=== PATIENT | female | born 1995 | race African-American/Black ===

== ENCOUNTER 2016-11-14 15:13 | Emergency (ER) | payer OTHER ==
[~2016-11-14] VITALS: Ht 162.6 cm; Wt 53.7 kg
[2016-11-14 15:16] VITALS: Ht 162.6 cm; Wt 53.7 kg
[2016-11-14] MEDS ORDERED: SODIUM CHLORIDE 0.9% 1000ML 1,000 ML IV STA (15:31)
[2016-11-14 15:49] LABS: URINE APPEARANCE CLEAR (CLEAR); URINE BILIRUBIN NEG (NEG); URINE COLOR YELLOW; URINE EPITHELIAL CELL AUTO >30 /lpf (0-5); URINE NITRITE NEG (NEG); URINE PH 7.5 (4.5-7.5); URINE SPECIFIC GRAVITY 1.016 (1.000-1.030); UROBILINOGEN NEG (NEG); ZZUR CULT IF INDIC CLEAN CATCH YES
[2016-11-14 15:51] LABS: MANUAL MICROSCOPIC REQUIRED? NO; REVIEW REQ? NO
[2016-11-14 16:08] LABS: BASO % 0.2 %; BASO ABS # 0.01 K/uL (0-0.2); COMPLETE YES; EOS % 1.3 %; HEMATOCRIT 37.6 % (37-47); IG% 0.4 %; LYMPH % 33.1 %; LYMPH ABS # 1.52 K/uL (1.2-3.4); MEAN CELL VOLUME 90.4 fL (80-100); MEAN CORPUSCULAR HEMOGLOBIN 28.8 pg (25-34); MEAN CORPUSCULAR HGB CONC 31.9 g/dl (32-36); MEAN PLATELET VOLUME 12.8 fL (7.4-10.4); PLATELET COUNT 170 K/uL (130-400); RED BLOOD COUNT 4.16 M/uL (4.2-5.4); WHITE BLOOD COUNT 4.59 K/uL (4.8-10.8)
[2016-11-14 16:30] LABS: ALT/SGPT 22 U/L (12-78); BLOOD UREA NITROGEN 9 mg/dl (7-18); BUN/CREATININE RATIO 11.8 (10-20); C-REACTIVE PROTEIN < 0.29 mg/dl (0-0.29); CALCIUM 9.7 mg/dl (8.5-10.1); CARBON DIOXIDE 30 mmol/L (21-32); CHLORIDE 106 mmol/L (98-107); GLUCOSE 76 mg/dl (70-99); POTASSIUM 3.5 mmol/L (3.5-5.1); SODIUM 140 mmol/L (136-145)
--- NOTE | 2016-11-14 16:32 | DIAGNOSTIC IMAGING REPORT ---
ABDOMEN 2VIEW W/PA CHEST RTN CLINICAL HISTORY: Right-sided abdominal pain of 2 weeks' duration. COMPARISON STUDY: No previous studies for comparison. FINDINGS: The erect chest reveals no evidence of free air. There is no evidence of focal pulmonary consolidation.] Erect and supine views of the abdomen reveal no abnormally dilated loops of large or small bowel. There are no transition zone to indicate bowel obstruction. There is a thoracolumbar dextroscoliosis. There is mild fecal retention. There are nonspecific left pelvic basin calcifications, statistically representing phleboliths. IMPRESSION: 1. No evidence of bowel obstruction. No evidence of free air 2. Scoliosis 3. Mild fecal retention Electronically signed by: Darryl Kingsley M.D. 11/14/2016 4:30 PM Dictated Date/Time: 11/14/2016 4:29 PM
[2016-11-14 16:33] LABS: ALKALINE PHOSPHATASE 71 U/L (45-117); AST/SGOT 16 U/L (15-37)
[2016-11-14] MEDS ORDERED: MULT-513 PO (16:51)
[2016-11-14] MEDS ORDERED: IBUP-103 PO (16:51)
[2016-11-14] MEDS ORDERED: OPTIRAY 320 IV PRN (17:15)
--- NOTE | 2016-11-14 18:06 | EMERGENCY ROOM VISIT NOTE ---
History First contact with patient: 15:22 Chief Complaint: ABDOMINAL PAIN Stated Complaint: ABD. PAIN IN LOWER RIGHT Nursing Triage Summary: lower right abdominal pain for the past 2 weeks. denies n/v/d History of Present Illness The patient is a 21 year old female who presents to the Emergency Room with complaints of right-sided abdominal pain for the past 2 weeks. She states the pain is constant, crampy and pressure-like in nature, worse with eating, improved with moving her bowels, 6/10. He has taken ibuprofen for the pain with little improvement. She has also tried taking medicine for constipation, but her pain has not gotten any better. She states she had similar symptoms over the summer and was evaluated at another hospital, where she had blood work , urine tests, CT and ultrasound of the abdomen and was told that everything was normal and she was constipated. She started taking medication for constipation at that time and her symptoms went away. She is concerned today because her abdominal pain is getting worse and she does not know what is causing it. She denies any nausea, vomiting, diarrhea, blood in her stool, fevers or chills, urinary complaints, back pain, chest pain, shortness of breath , dizziness or passing out. Review of Systems A complete 10 point review of systems was reviewed with the patient with pertinent positives and negatives as per history of present illness. All else were negative. Past Medical/Surgical History Significant past medical history Social History Smoking Status: Never Smoker Alcohol Use: none Drug Use: none Occupation Status: [employer] student Current/Historical Medications Scheduled Ibuprofen Tab (Advil), 400 MG PO PRN Multivitamins/Minerals (Mvi With Minerals), 1 TAB PO WK Allergies No known allergies. Physical Exam Vital Signs Date Time Temp Pulse Resp B/P (MAP) Pulse Ox O2 Delivery O2 Flow Rate FiO2 11/14/16 21:09 36.6 73 16 114/67 100 11/14/16 21:08 73 16 114/67 100 Room Air 11/14/16 18:40 73 16 108/65 100 Room Air 11/14/16 16:53 69 16 100/62 100 Room Air 11/14/16 16:28 69 11/14/16 16:01 71 18 98 11/14/16 15:16 36.6 80 18 105/70 99 Room Air Physical Exam CONSTITUTIONAL: No acute distress. Well appearing and well nourished. Alert and oriented X 4 with normal affect. HEENT: Normocephalic, atraumatic. Pupils equal, round and reactive to light, EOMI. TMs normal. Pharynx normal. NECK: Supple, full active range of motion without discomfort. RESPIRATORY: Clear to auscultation bilaterally with no wheezing, crackles, rhonchi or stridor. Equal expansion bilaterally. CARDIOVASCULAR: Regular rate and rhythm with no murmurs, rubs or gallops. Normal peripheral perfusion. No edema. GASTROINTESTINAL: Moderate tenderness of the right lower quadrant, with positive McBurney's point tenderness. Mild guarding, negative rebound. Negative Rovsing. Soft, nondistended. Bowel sounds present in all quadrants. MUSCULOSKELETAL: Full range of motion of all joints without discomfort. INTEGUMENTARY: No rash or other significant dermatologic conditions noted. NEUROLOGIC: Cranial nerves II-XII grossly intact. No focal neurologic deficits noted. Medical Decision & Procedures ER Provider Diagnostic Interpretation: ABDOMEN 2VIEW W/PA CHEST RTN CLINICAL HISTORY: Right-sided abdominal pain of 2 weeks' duration. COMPARISON STUDY: No previous studies for comparison. FINDINGS: The erect chest reveals no evidence of free air. There is no evidence of focal pulmonary consolidation.] Erect and supine views of the abdomen reveal no abnormally dilated loops of large or small bowel. There are no transition zone to indicate bowel obstruction. There is a thoracolumbar dextroscoliosis. There is mild fecal retention. There are nonspecific left pelvic basin calcifications, statistically representing phleboliths. IMPRESSION: 1. No evidence of bowel obstruction. No evidence of free air 2. Scoliosis 3. Mild fecal retention ----- CT ABD/PELVIS IV AND ORAL CONT CLINICAL HISTORY: Right lower quadrant abdominal pain COMPARISON STUDY: None. TECHNIQUE: Following the IV administration of 94 mL of Optiray-320, CT scan of the abdomen and pelvis was performed from the lung bases to the proximal femurs. Images are reviewed in the axial, sagittal, and coronal planes. IV contrast was administered without complication. A dose lowering technique was utilized adhering to the principles of ALARA. CT DOSE: 256.40 mGy.cm FINDINGS: Lower chest: The heart is normal in size and configuration, without pericardial effusion. The lung bases and pleural spaces are clear. Liver: The contrast-enhanced liver is normal in size, contour, and attenuation. There is no intrahepatic biliary ductal dilatation. The hepatic veins and portal veins are patent. Gallbladder: Unremarkable. Spleen: Normal in size and attenuation. Pancreas: Unremarkable. Adrenal glands: Unremarkable. Kidneys: There are 3 subcentimeter right renal hypodensities, statistically representing cysts. Bowel: There are no transition zones indicate bowel obstruction. The visualized portions of the appendix appear normal and gas-filled. There are no findings to indicate acute appendicitis. There is no evidence of acute diverticulitis. Peritoneum: There is no intraperitoneal free air or abdominal ascites. Vasculature: The abdominal aorta is normal in course and caliber. Adenopathy: None. Pelvic viscera: Small left ovarian follicles are visualized. Skeletal structures: There is a mild scoliosis IMPRESSION: 1. No acute intra-abdominal or pelvic findings 2. No evidence of bowel obstruction. No evidence of free air 3. No evidence of acute appendicitis. No evidence of acute diverticulitis 4. Mild fecal retention Laboratory Results 11/14/16 15:56 Red Blood Count 4.16, Mean Corpuscular Volume 90.4, Mean Corpuscular Hemoglobin 28.8, Mean Corpuscular Hemoglobin Concent 31.9, Mean Platelet Volume 12.8, Neutrophils (%) (Auto) 55.0, Lymphocytes (%) (Auto) 33.1, Monocytes (%) (Auto) 10.0, Eosinophils (%) (Auto) 1.3, Basophils (%) (Auto) 0.2, Neutrophils # (Auto ) 2.52, Lymphocytes # (Auto) 1.52, Monocytes # (Auto) 0.46, Eosinophils # (Auto ) 0.06, Basophils # (Auto) 0.01 11/14/16 15:56 Test 11/14/16 15:32 11/14/16 15:56 Urine Color YELLOW Urine Appearance CLEAR (CLEAR) Urine pH 7.5 (4.5-7.5) Urine Specific [place] 1.016 (1.000-1.030) Urine Protein NEG (NEG) Urine Glucose (UA) NEG (NEG) Urine Ketones NEG (NEG) Urine Occult Blood NEG (NEG) Urine Nitrite NEG (NEG) Urine Bilirubin NEG (NEG) Urine Urobilinogen NEG (NEG) Urine Leukocyte Esterase TRACE (NEG) Urine WBC (Auto) 1-5 /hpf (0-5) Urine RBC (Auto) 0-4 /hpf (0-4) Urine Hyaline Casts (Auto) 1-5 /lpf (0-5) Urine Epithelial Cells (Auto) >30 /lpf (0-5) Urine Bacteria (Auto) 1+ (NEG) Urine Test NEG (NEG) White Blood Count 4.59 K/uL (4.8-10.8) Red Blood Count 4.16 M/uL (4.2-5.4) Hemoglobin 12.0 g/dL (12.0-16.0) Hematocrit 37.6 % (37-47) Mean Corpuscular Volume 90.4 fL (80-100) Mean Corpuscular Hemoglobin 28.8 pg (25-34) Mean Corpuscular Hemoglobin Concent 31.9 g/dl (32-36) Platelet Count 170 K/uL (130-400) Mean Platelet Volume 12.8 fL (7.4-10.4) Neutrophils (%) (Auto) 55.0 % Lymphocytes (%) (Auto) 33.1 % Monocytes (%) (Auto) 10.0 % Eosinophils (%) (Auto) 1.3 % Basophils (%) (Auto) 0.2 % Neutrophils # (Auto) 2.52 K/uL (1.4-6.5) Lymphocytes # (Auto) 1.52 K/uL (1.2-3.4) Monocytes # (Auto) 0.46 K/uL (0.11-0.59) Eosinophils # (Auto) 0.06 K/uL (0-0.5) Basophils # (Auto) 0.01 K/uL (0-0.2) RDW Standard Deviation 45.1 fL (36.4-46.3) RDW Coefficient of Variation 13.6 % (11.5-14.5) Immature Granulocyte % (Auto) 0.4 % Immature Granulocyte # (Auto) 0.02 K/uL (0.00-0.02) Erythrocyte Sedimentation Rate 18 mm/hr (0-21) Anion Gap 4.0 mmol/L (3-11) Est Creatinine Clear Calc Drug Dose 94.3 ml/min Estimated GFR () 122.2 Estimated GFR (Non- 105.4 BUN/Creatinine Ratio 11.8 (10-20) Calcium Level 9.7 mg/dl (8.5-10.1) Total Bilirubin 0.5 mg/dl (0.2-1) Direct Bilirubin 0.1 mg/dl (0-0.2) Aspartate Amino Transf (AST/SGOT) 16 U/L (15-37) Alanine Aminotransferase (ALT/SGPT) 22 U/L (12-78) Alkaline Phosphatase 71 U/L (45-117) C-Reactive Protein < 0.29 mg/dl (0-0.29) Total Protein 8.2 gm/dl (6.4-8.2) Albumin 4.1 gm/dl (3.4-5.0) Lipase 163 U/L (73-393) Medications Administered Medications (Trade) Dose Ordered Sig/Anne Route Start Time Stop Time Status Last Admin Dose Admin Sodium Chloride 1,000 ml @ 999 mls/hr Q1H1M STAT IV 11/14/16 15:31 11/14/16 16:31 DC 11/14/16 16:01 999 MLS/HR Medical Decision CC: Patient presenting with complaint of right lower quadrant pain Interpretation of Labs: No leukocytosis, no anemia, no significant loculated abnormalities, normal renal function, normal liver enzymes and lipase, normal inflammatory markers. UA negative, negative urine . Differential Diagnosis: Includes, but not limited to appendicitis, mesenteric adenitis, gastroenteritis, constipation, bowel obstruction, ovarian cyst, UTI, pyelonephritis, among others. Medication Reconciliation: I attest that I have personally reviewed the patient' s current medication list. Vital signs review: I reviewed the patient's vital signs and interpret them as follows: T: Afebrile; BP: Normotensive; HR: Within normal limits; RR: Within normal limits; Pulse Ox: Within normal limits on room air. Summary: Patient was evaluated at bedside, history of physical exam performed. Patient is alert and in no acute distress, resting quietly in the stretcher. Patient does have significant right lower quadrant tenderness to palpation, especially over McBurney's point, concerning for appendicitis. I discussed my concerns with the patient and my recommendation for her workup today. Patient states because she has had a workup done before that was negative, she wants to avoid CT today because of the radiation exposure. I did discuss the risks and benefits of the CT scan, primarily ruling out appendicitis at this time. Our plan for now is to check lab work, UA, and plain film x-ray of the abdomen, as patient is adamant about avoiding CT today. Patient discussed with Dr. Saeed, who agrees with my assessment and plan. Labs reviewed as above, unremarkable. Negative urine . Acute abdominal series x-rays negative for any acute concerns. Does note some mild fecal retention that could be consistent with constipation. I discussed all results with the patient. She has spoken on the phone with her mother, and now is concerned that we have not ruled out appendicitis, and would like to have a CT scan done. I explained to the patient that she would need to be in the emergency department for several more hours to drink the oral contrast and have the study done, she verbalized understanding and wants to do this now. CT abdomen/pelvis with IV and oral contrast was ordered to rule out appendicitis. CT imaging reviewed, no evidence of acute appendicitis or other acute abnormality. Patient reassessed multiple times throughout ED stay, she reports she is feeling a little bit better. I discussed all results with the patient and plan for discharge. I encouraged the patient to follow up with her PCP, and consider referral to a surgical supplies sterilizer if her symptoms do not improve. I did give her a regimen to follow to manage her constipation with MiraLAX, she verbalized understanding. The patient was also given strict return precautions should her symptoms worsen. Patient was discharged home in stable condition and ambulatory. Impression Primary Impression: Right lower quadrant abdominal pain Additional Impression: Constipation Departure Information Dispostion Home / Self-Care Condition GOOD Referrals [facility] (PCP) Patient Instructions ED Constipation, My [facility] Additional Instructions You have been treated in the Emergency Department your Abdominal Pain. Laboratory results and imaging studies have ruled out any emergent causes for your abdominal pain which would warrant admission or surgery. Your imaging studies today do indicate that you are constipated. To help with constipation, you can take MiraLAX, which is an [id number]-[id number] medication. Take 1 capful twice a day until you are having soft bowel movements , then reduced to 1 capful once a day for management. For pain control, you can use the following hkph-rba-ohdclna medicines (if >12 yo): - Regular strength (325mg/tab) Tylenol (acetaminophen) 2 tabs every 4-6 hours as needed. Do not exceed 10 tablets in a 24 hour period. Avoid taking more than 3000 mg of Tylenol per day. This includes any other sources of acetaminophen you may take on a regular basis. - Regular strength (200 mg/tab) Advil (ibuprofen) 2-3 tabs every 4-6 hours as needed. Do not exceed a dose of 2400 mg per day. Drink plenty of fluids and stay well hydrated. Dehydration can significantly contribute to constipation. Follow-up with your PCP at [facility] for further management. If you continued to have issues with abdominal pain and constipation, you may benefit from being evaluated by a surgical supplies sterilizer. Your PCP can refer you. Return to the emergency department for any worsening symptoms, including severe worsening pain, fevers/chills, severe nausea/vomiting, vomiting blood, blood in your stool or urine, or any other concerns. School Instructions Return To School: 1 day Problem Qualifiers Additional Impression: Constipation Constipation type: unspecified constipation type Qualified Codes: K59.00 - Constipation, unspecified
--- NOTE | 2016-11-14 19:55 | DIAGNOSTIC IMAGING REPORT ---
CT ABD/PELVIS IV AND ORAL CONT CLINICAL HISTORY: Right lower quadrant abdominal pain COMPARISON STUDY: None. TECHNIQUE: Following the IV administration of 94 mL of Optiray-320, CT scan of the abdomen and pelvis was performed from the lung bases to the proximal femurs. Images are reviewed in the axial, sagittal, and coronal planes. IV contrast was administered without complication. A dose lowering technique was utilized adhering to the principles of ALARA. CT DOSE: 256.40 mGy.cm FINDINGS: Lower chest: The heart is normal in size and configuration, without pericardial effusion. The lung bases and pleural spaces are clear. Liver: The contrast-enhanced liver is normal in size, contour, and attenuation. There is no intrahepatic biliary ductal dilatation. The hepatic veins and portal veins are patent. Gallbladder: Unremarkable. Spleen: Normal in size and attenuation. Pancreas: Unremarkable. Adrenal glands: Unremarkable. Kidneys: There are 3 subcentimeter right renal hypodensities, statistically representing cysts. Bowel: There are no transition zones indicate bowel obstruction. The visualized portions of the appendix appear normal and gas-filled. There are no findings to indicate acute appendicitis. There is no evidence of acute diverticulitis. Peritoneum: There is no intraperitoneal free air or abdominal ascites. Vasculature: The abdominal aorta is normal in course and caliber. Adenopathy: None. Pelvic viscera: Small left ovarian follicles are visualized. Skeletal structures: There is a mild scoliosis IMPRESSION: 1. No acute intra-abdominal or pelvic findings 2. No evidence of bowel obstruction. No evidence of free air 3. No evidence of acute appendicitis. No evidence of acute diverticulitis 4. Mild fecal retention Electronically signed by: Darryl Kingsley M.D. 11/14/2016 7:54 PM Dictated Date/Time: 11/14/2016 7:50 PM
[2016-11-14 21:09] VITALS: BP 114/67; PULSE 73; TEMP 36.6; O2SAT 100
== END 2016-11-14 21:11 | disposition home or self-care (01) ==
LOC: C.EDB 15:16
DX: R10.31 Right lower quadrant pain (principal); K59.00 Constipation, unspecified